=== PATIENT | female | born 1985 | race Caucasian/White ===

== ENCOUNTER 2016-10-11 10:19 | Emergency (ER) | payer MEDICAID, OTHER ==
[~2016-10-11] VITALS: Ht 165.1 cm; Wt 88.5 kg
[2016-10-11 10:24] VITALS: Ht 165.1 cm; Wt 88.5 kg
--- NOTE | 2016-10-11 11:22 | ERD ---
ER Documentation Chief Complaint Date/Time DATE: 10/11/16 TIME: 11:13 Chief Complaint Periorbital edema B eyes. R>L. No discharge, + itching. HPI 31-year-old female is complaining of swelling her bilateral eyelids since today. Patient stated that she went to the beach 2 days ago, did not use sunscreen. She came home with first-degree sunburn on her face and rest the body. She noticed her face felt swollen yesterday. This morning, she woke up with her eyelid swollen. Denies eye pain or discharge. Denies decreasing vision. Denies photophobia. Denies exposure to new foods or new cleaning products. Denies shortness of breath. ROS All systems reviewed and are negative except as per history of present illness. Allergies Allergies: Coded Allergies: Penicillins (Verified Allergy, Intermediate, 10/11/16) Physical Exam Vitals Vital Signs Date Time Temp Pulse Resp B/P Pulse Ox O2 Delivery O2 Flow Rate FiO2 10/11/16 10:24 98.5 83 16 120/57 99 Physical Exam General: Well-developed, well-nourished, conscious and coherent, in no distress Skin: Widespread first-degree sunburn noted patient's face and extremities. Head: Normocephalic without evidence of trauma Eyes: Sclera and conjunctivae normal; pupils equal, round, and reactive to light; extraocular movements are intact. Bilateral eyelids edema, with the right more pronounced than the left. Slight ptosis on the right. Not erythematous, nontender. Neck: Supple without meningismus or adenopathy. Carotids are equal. Trachea midline. No bruits or JVD Chest: Normal AP diameter. Good expansion without retractions. Nontender. Lungs are clear to auscultate bilaterally with good tidal volume Heart: Regular rate and rhythm. No murmur, rub, or gallops heard Extremities: Full range of motion. Good strength bilaterally. No clubbing, cyanosis, or edema. Peripheral pulses are intact. Sensation intact Neuro: Alert and oriented 4, GCS 15. Cranial nerves grossly intact. Motor and sensory exams nonfocal. Moves all extremities. Speech clear. Gait normal Results 24 hrs Current Medications Medications (Trade) Dose Ordered Sig/Theodore Route PRN Reason Start Time Stop Time Status Last Admin Dose Admin Dexamethasone (Decadron) 10 mg ONCE ONCE IM 10/11/16 11:30 10/11/16 11:31 Procedures/MDM Well-appearing 31-year-old female presented ED was bilateral eyelid swelling. Likely her swelling is secondary to summer her face, due to fluid accumulation. Low suspicion for allergic reaction or anaphylaxis. Low suspicion for periorbital or orbital cellulitis. Patient given Decadron 10 mg IM in the ED. The edema has improved after Decadron. Patient advised to apply ice at home to reduce inflammation and edema, and apply moisturizer to the skin 2-3 times a day. Patient appears well, stable for discharge and outpatient management. Medical decision making shared with patient and family. Education provided to patient and family. Patient and family expressed understanding of the plan. Medications on discharge: None. Follow-up: Primary care provider in 2-3 days or return to ED if worse. Departure Diagnosis: Primary Impression: Burn from the sun Condition: Stable Patient Instructions: Sunburn Referrals: [facility] YOU HAVE RECEIVED A MEDICAL SCREENING EXAM AND THE RESULTS INDICATE THAT YOU DO NOT HAVE A CONDITION THAT REQUIRES URGENT TREATMENT IN THE EMERGENCY DEPARTMENT. FURTHER EVALUATION AND TREATMENT OF YOUR CONDITION CAN WAIT UNTIL YOU ARE SEEN IN YOUR DOCTORS OFFICE WITHIN THE NEXT 1-2 DAYS. IT IS YOUR RESPONSIBILITY TO MAKE AN APPOINTMENT FOR FOLOW-UP CARE. IF YOU HAVE A PRIMARY DOCTOR --you should call your primary doctor and schedule an appointment IF YOU DO NOT HAVE A PRIMARY DOCTOR YOU CAN CALL OUR PHYSICIAN REFERRAL HOTLINE AT IF YOU CAN NOT AFFORD TO SEE A PHYSICIAN YOU CAN CHOSE FROM THE FOLLOWING [facility] [address] [facility] [facility] [address] [facility] [email or web address] [address] [facility] [facility] [address] [facility] [address]. [facility] [address] [facility]. [facility] Hours: Mon - Fri 9:00 AM - 5:00 PM Additional Instructions: Call your primary care doctor TOMORROW for an appointment during the next 2-3 days.See the doctor sooner or return here if your condition worsens before your appointment time. JESSICA MEEHAN. SHANTI Oct 11, 2016 11:22
[2016-10-11] MEDS ORDERED: DEXAMETHASONE 10 MG/ML 1 ML INJ IM ONE (11:30)
== END 2016-10-11 12:25 | disposition home or self-care (01) ==
LOC: FTE 10:19
DX: T26.42XA Burn of left eye and adnexa, part unspecified, initial encounter (principal); X32.XXXA Exposure to sunlight, initial encounter; Y92.832 Beach as the place of occurrence of the external cause
CPT/HCPCS: 96372; J1100; Z7502